=== PATIENT | female | born 1970 | race Caucasian/White ===

== ENCOUNTER 2017-11-14 11:02 | Outpatient (CLI) | payer OTHER | END 2017-11-14 11:13 | disposition home or self-care (01) | LOC: MAMO-SONO 11:02 | DX: N60.11 Diffuse cystic mastopathy of right breast (principal); Z12.31 Encounter for screening mammogram for malignant neoplasm of breast ==

== ENCOUNTER 2019-11-06 12:58 | Outpatient (CLI) | payer OTHER | END 2019-11-06 13:14 | disposition home or self-care (01) | LOC: MAMO-SONO 12:58 | PROVIDERS: ATTEND Obstetrics & Gynecology | DX: Z12.31 Encounter for screening mammogram for malignant neoplasm of breast (principal); N60.11 Diffuse cystic mastopathy of right breast ==

== ENCOUNTER 2020-11-15 10:06 | Outpatient (CLI) | payer OTHER | END 2020-11-15 10:28 | disposition home or self-care (01) | LOC: MAMO-SONO 10:06 | PROVIDERS: ATTEND Obstetrics & Gynecology | DX: N60.11 Diffuse cystic mastopathy of right breast (principal) ==

== ENCOUNTER 2021-11-21 13:02 | Outpatient (CLI) | payer OTHER | END 2021-11-21 13:17 | disposition home or self-care (01) | LOC: MAMO-SONO 13:02 | DX: N64.4 Mastodynia (principal); N64.89 Other specified disorders of breast ==

== ENCOUNTER 2022-11-22 12:19 | Outpatient (CLI) | payer OTHER | END 2022-11-22 14:23 | disposition home or self-care (01) | LOC: MAMO-SONO 12:19 | PROVIDERS: ATTEND Obstetrics & Gynecology | DX: N60.11 Diffuse cystic mastopathy of right breast (principal); Z12.31 Encounter for screening mammogram for malignant neoplasm of breast ==

== ENCOUNTER 2024-11-12 09:52 | Outpatient (CLI) | payer OTHER | END 2024-11-12 09:56 | disposition home or self-care (01) | LOC: MAMO-SONO 09:52 → SONOGRAMA 09:52 | PROVIDERS: ATTEND Obstetrics & Gynecology | DX: N60.11 Diffuse cystic mastopathy of right breast (principal); Z12.31 Encounter for screening mammogram for malignant neoplasm of breast ==